=== PATIENT | female | born 1965 | race African-American/Black ===

== ENCOUNTER 2017-01-16 18:46 | Inpatient (IN) | payer MEDICAID, OTHER ==
[~2017-01-16] VITALS: Ht 175.3 cm; Wt 90.7 kg
[~2017-01-16 18:46] MED LIST: ALD50 PO; ALLO300T2 PO; ASPI-518 PO; CLOP75TA33 PO; DIGO125T82 PO; DIPH25CA83 PO; DOCU-138 PO; GABA-531 PO; KEPP500 PO; LISI-604 PO; LORA0.5T2 PO; METO-298; SERT25TA74 PO; TEMA30CA PO; TRAM50TA3 PO; TRAZ-129 PO
[2017-01-16] MEDS ORDERED: ASPIRIN 81MG TABLET PO STA (19:29)
[2017-01-16] MEDS ORDERED: ONDANSETRON HCL 4MG/2ML VIAL IV STA (19:29)
[2017-01-16] MEDS ORDERED: FUROSEMIDE 40MG/4ML VIAL IV STA (19:29)
[2017-01-16] MEDS ORDERED: MORPHINE SULFATE 4 MG/ML CPJ (NOT FOR IM USE) IV STA (19:29)
[2017-01-16] MEDS ORDERED: METHYLPREDNISOLONE SOD SUCC 125 MG/2 ML VIAL IV STA (19:29)
[2017-01-16] MEDS ORDERED: LEVOFLOXACIN 750MG PREMIX 150 ML IV ONE (19:30)
[2017-01-16] MEDS ORDERED: IPRATROPIUM/ALBUTEROL 0.5-3(2.5)MG/3ML NEB HHN ONE (19:30)
[2017-01-16] MEDS ORDERED: MAGNESIUM 2 G PREMIX 50 ML IV ONE (19:30)
[2017-01-16 19:56] LABS: BASOPHILS % 1.1 % (0.0-2.0); EOSINOPHILS % 0.9 % (0.0-5.0); HEMOGLOBIN. 13.5 g/dL (12.0-16.0); MEAN CORPUSCULAR HEMOGLOBIN 29.3 pg (28.0-32.0); MEAN CORPUSCULAR VOLUME 88.8 fL (81.0-99.0); MEAN PLATELET VOLUME 8.5 fl (7.4-10.4); MONOCYTES % 12.2 % (2.0-8.0); NEUTROPHILS % 60.8 % (40.0-76.0); PLATELET 155 x1000/uL (130-400); RED BLOOD CELL COUNT 4.62 mill/uL (4.2-5.4); RED CELL DISTRIBUTION WIDTH 15.7 % (11.6-14.6)
[2017-01-16] MEDS ORDERED: DIPHENHYDRAMINE 50MG/ML VIAL IV ONE (20:00)
[2017-01-16 20:01] LABS: INR 1.5; PARTIAL THROMBOPLASTIN TIME 30.3 sec (24.0-34.0); PROTHROMBIN TIME 15.3 sec
[2017-01-16 20:08] LABS: CARBON DIOXIDE 21 mEq/L (21-32); CHLORIDE 110 mEq/L (98-107); CREATINE KINASE 129 IU/L (26-192)
[2017-01-16 20:09] LABS: TROPONIN I < 0.02 ng/mL (0.00-0.04)
[2017-01-16 20:37] LABS: CLARITY URINE CLEAR (CLEAR); COLOR URINE YELLOW (YELLOW); GLUCOSE URINE NEGATIVE (NEGATIVE); KETONES URINE NEGATIVE (NEGATIVE); LEUKOCYTE ESTERASE URINE NEGATIVE (NEGATIVE); NITRITE URINE POSITIVE (NEGATIVE); OCCULT BLOOD URINE NEGATIVE (NEGATIVE); PH URINE 5.5 (4.5-8.0); PROTEIN URINE 2+ (NEGATIVE); SPECIFIC GRAVITY URINE 1.012 (1.005-1.030)
[2017-01-16 21:21] LABS: BG BASE EXCESS -3.7 mmol/L (-2.0-2.0); BG CARBOXYHEMOGLOBIN 0.4 % (0.5-1.5); BG DEOXYHEMOGLOBIN 2.7 % (0.0-5.0); BG FRACTION INSPIRED OXYGEN 28; BG HCO3 ACT 19.8 mmol/L (22.0-26.0); BG METHEMOGLOBIN 0.1 % (0.0-1.5); BG OXYGEN SATURATION 97.3 % (92.0-98.5); BG OXYHEMOGLOBIN 96.8 % (94.0-97.0); BG PCO2 31.3 mmHg (35.0-45.0); BG PH 7.418 (7.350-7.450); BG PO2 93.7 mmHg (75.0-100.0); BG SAMPLE SITE RIGHT RADIAL; BG VENT MODE NASAL CANNULA
[2017-01-17 00:40] VITALS: BP 124/97
[2017-01-17] MEDS ORDERED: ACETAMINOPHEN 325MG TABLET PO PRN (02:45)
[2017-01-17] MEDS ORDERED: ZOLPIDEM TARTRATE 5MG TABLET PO PRN (02:45)
[2017-01-17] MEDS ORDERED: DEXTROSE 50% WATER 50ML SYRINGE IV PRN (02:45)
[2017-01-17] MEDS ORDERED: ONDANSETRON HCL 4MG/2ML VIAL IV PRN (02:45)
[2017-01-17] MEDS ORDERED: CLONIDINE 0.3MG TABLET PO PRN (02:45)
[2017-01-17] MEDS ORDERED: HYDROCODONE/ACETAMINOPHEN 5/325MG TABLET PO PRN (02:45)
[2017-01-17] MEDS ORDERED: IPRATROPIUM/ALBUTEROL 0.5-3(2.5)MG/3ML NEB HHN PRN (03:30)
[2017-01-17 04:00] VITALS: BP 121/86
[2017-01-17] MEDS: OMEPRAZOLE 20MG CAPSULE EXTENDED RELEASE PO SCH (06:07)
[2017-01-17] MEDS: LEVOFLOXACIN 500MG PREMIX 100 ML IV SCH (06:08)
[2017-01-17] MEDS: INSULIN LISPRO 100 UNITS/ML SUBCUT SCH ×4 (06:09→21:00)
[2017-01-17] MEDS: BLOOD SUGAR DIAGNOSTIC STRIP TEST SCH ×4 (06:10→21:00)
[2017-01-17] MEDS ORDERED: ENOXAPARIN 40MG/0.4ML SYR SUBCUT SCH (09:00)
[2017-01-17] MEDS ORDERED: ENOXAPARIN 30MG/0.3ML SYR SUBCUT SCH (09:00)
[2017-01-17] MEDS: FUROSEMIDE 40MG/4ML VIAL IVP SCH ×2 (09:07→16:24)
[2017-01-17] MEDS ORDERED: ENOXAPARIN 60MG/0.6ML SYR SUBCUT SCH (09:45)
[2017-01-17] MEDS: CARVEDILOL 3.125 MG TABLET PO SCH ×2 (10:24→21:00)
[2017-01-17 11:30] LABS: CREATINE KINASE 120 IU/L (26-192); CREATINE KINASE MB FRACTION 6.4 ng/mL (0.5-3.6); TROPONIN I < 0.02 ng/mL (0.00-0.04)
[2017-01-17 11:44] LABS: DIGOXIN 0.3 ng/mL (0.9-2.0)
[2017-01-17 12:00] VITALS: BP 122/90
[2017-01-17 12:27] LABS: *AMPHETAMINES SCREEN URINE NEGATIVE (NEGATIVE); *BARBITURATES SCREEN URINE NEGATIVE (NEGATIVE); *BENZODIAZEPINES SCREEN URINE NEGATIVE (NEGATIVE); *COCAINE SCREEN URINE NEGATIVE (NEGATIVE); CANNABINOID URINE SCREEN NEGATIVE (NEGATIVE); METHADONE URINE SCREEN NEGATIVE (NEGATIVE); OPIATES URINE SCREEN PRESUMTIVE POSITIVE (NEGATIVE); PHENCYCLIDINE URINE SCREEN NEGATIVE (NEGATIVE)
[2017-01-17 16:20] VITALS: BP 2/115
[2017-01-17] MEDS: IPRATROPIUM/ALBUTEROL 0.5-3(2.5)MG/3ML NEB HHN SCH ×2 (16:46→21:59)
[2017-01-17 20:00] VITALS: BP 102/84
[2017-01-17] MEDS: ENOXAPARIN 100MG/ML SYR SUBCUT SCH (22:23)
[2017-01-18] VITALS (7 sets, daily range): BP systolic 104–141; BP diastolic 83–99
[2017-01-18] MEDS: IPRATROPIUM/ALBUTEROL 0.5-3(2.5)MG/3ML NEB HHN SCH ×4 (02:12→20:48)
[2017-01-18] MEDS: LEVOFLOXACIN 500MG PREMIX 100 ML IV SCH (05:40)
[2017-01-18 06:29] LABS: BASOPHILS % 0.2 % (0.0-2.0); EOSINOPHILS % 0.2 % (0.0-5.0); HEMATOCRIT. 39.6 % (36.0-48.0); LYMPHOCYTES % 14.8 % (20.0-50.0); MEAN CORPUSCULAR HEMOGLOBIN 29.2 pg (28.0-32.0); MEAN CORPUSCULAR VOLUME 88.6 fL (81.0-99.0); MEAN PLATELET VOLUME 8.8 fl (7.4-10.4); MONOCYTES % 7.1 % (2.0-8.0); NEUTROPHILS % 77.7 % (40.0-76.0); PLATELET 150 x1000/uL (130-400); RED BLOOD CELL COUNT 4.47 mill/uL (4.2-5.4); RED CELL DISTRIBUTION WIDTH 16.1 % (11.6-14.6)
[2017-01-18] MEDS: INSULIN LISPRO 100 UNITS/ML SUBCUT SCH ×4 (07:10→21:00)
[2017-01-18] MEDS: BLOOD SUGAR DIAGNOSTIC STRIP TEST SCH ×4 (07:24→21:00)
[2017-01-18] MEDS: OMEPRAZOLE 20MG CAPSULE EXTENDED RELEASE PO SCH (07:24)
[2017-01-18] MEDS: FUROSEMIDE 40MG/4ML VIAL IVP SCH (08:09)
[2017-01-18] MEDS: CARVEDILOL 3.125 MG TABLET PO SCH (08:11)
[2017-01-18] MEDS: ENOXAPARIN 100MG/ML SYR SUBCUT SCH ×2 (08:13→22:59)
[2017-01-18] MEDS ORDERED: DIGOXIN 125MCG TABLET PO SCH (18:00)
[2017-01-18] MEDS ORDERED: CARVEDILOL 3.125 MG TABLET PO SCH (21:00)
[2017-01-19] MEDS ORDERED: FAMOTIDINE 20MG TABLET PO SCH (07:10)
[2017-01-19] MEDS ORDERED: FUROSEMIDE 40MG/4ML VIAL IVP SCH (09:00)
== END 2017-01-18 23:50 | disposition short-term general hospital (02) | DRG 140 ==
LOC: ER 18:46 → 8WST 20:45 → EDBEDREQTM 20:51 → EDBEDREQ 20:51 → EDBEDREQSVC 22:03 → ENRESERV 23:48
PROVIDERS: ADMIT Internal Medicine; ATTEND Internal Medicine
DX: J44.1 Chronic obstructive pulmonary disease with (acute) exacerbation (principal); I50.23 Acute on chronic systolic (congestive) heart failure; I47.2 Ventricular tachycardia; J96.00 Acute respiratory failure, unspecified whether with hypoxia or hypercapnia; J96.90 Respiratory failure, unspecified, unspecified whether with hypoxia or hypercapnia; I42.0 Dilated cardiomyopathy; I11.0 Hypertensive heart disease with heart failure; E11.9 Type 2 diabetes mellitus without complications; I27.2 Other secondary pulmonary hypertension; E66.9 Obesity, unspecified; I48.2 Chronic atrial fibrillation; Z87.891 Personal history of nicotine dependence; Z88.0 Allergy status to penicillin; Z86.73 Personal history of transient ischemic attack (TIA), and cerebral infarction without residual deficits; Z82.3 Family history of stroke; Z68.29 Body mass index [BMI] 29.0-29.9, adult
CPT/HCPCS: 36415; 36600; 71010; 80048; 80053; 80162; 80305; 81001; 82375; 82550; 82553; 82805; 82962; 83605; 83690; 83735; 83880; 84443; 84484; 85025; 85610; 85730; 87040; 93005; 93306; 93970; 94640; 96365; 96366; 96367; 96375; 99285; J1200; J1650; J1815; J1940; J1956; J2270; J2405; J2930; J3475; J7040; J7620